=== PATIENT | male | born 2000 ===

== ENCOUNTER → 2024-11-23 | Outpatient (CLI) | payer SELFPAY ==
[~2024-11-23] MED LIST: AMOCLA250S PO; Amoxicillin500 MG PO; CODGUAEL PO; RXAMOCLASU PO; RXCODGUASY PO
[2024-11-24 08:06] LABS: C DIFFICILE DNA NEGATIVE (Negative)
== END | disposition home or self-care (01) ==
LOC: LAB SHORT 17:16 → LAB 17:16
PROVIDERS: Physician Assistant
DX: R10.9 Unspecified abdominal pain (principal); R11.10 Vomiting, unspecified; Z20.818 Contact with and (suspected) exposure to other bacterial communicable diseases
CPT/HCPCS: 87493